=== PATIENT | male | born 1990 | race African-American/Black ===

== ENCOUNTER 2019-02-26 03:25 | Emergency (ER) | payer OTHER ==
[~2019-02-26] VITALS: Ht 182.9 cm; Wt 79.8 kg
--- NOTE | 2019-02-26 03:45 | NUR ---
PT BIBS. C/O "FOUND UNCONSCIOUS OUTSIDE. PROBABLY OD'D ON SPICE" VSS PT RESPONSIVE TO PAIN. WILL CONTINUE TO MONITOR. PT PLACED ON MONITOR.
[2019-02-26 04:08] LABS: BASOPHILS % (AUTO) 0.8 % (0.0-2.0); EOSINOPHILS % (AUTO) 1.5 % (0.0-6.0); HEMATOCRIT 40 % (39-51); HEMOGLOBIN 13.5 g/dL (13.5-17.5); LYMPHOCYTES # (AUTO) 3.1 /CMM (0.8-4.8); LYMPHOCYTES % (AUTO) 55.9 % (20.0-44.0); MEAN CORPUSCULAR HGB CONC 34 g/dl (31.0-36.0); MEAN CORPUSCULAR VOLUME 90 fL (80-96); MONOCYTES # (AUTO) 0.7 /CMM (0.1-1.30); MONOCYTES % (AUTO) 13.3 % (2.0-12.0); NEUTROPHILS # (AUTO) 1.6 /CMM (1.8-8.9); NEUTROPHILS % (AUTO) 28.5 % (43.0-81.0); PLATELET COUNT (AUTO) 223 /CMM (150-450); WHITE BLOOD COUNT (AUTO) 5.5 K/uL (4.3-11.0)
[2019-02-26 04:16] LABS: CALCIUM, SERUM 9.2 mg/dL (8.5-10.1); CARBON DIOXIDE 32 mmol/L (21-32); CHLORIDE 105 mmol/L (98-107); CREATININE 1.2 mg/dL (0.6-1.3); GLUCOSE 104 mg/dL (74-106); POTASSIUM 4.1 mmol/L (3.5-5.1); SODIUM SERUM 141 mmol/L (136-145); UREA NITROGEN, BLOOD 14 mg/dL (7-18)
[2019-02-26 04:22] LABS: ALANINE AMINOTRANSFERASE 19 U/L (12-78); ALBUMIN 3.6 g/dL (3.4-5.0); ALCOHOL, BLOOD < 3 mg/dL (0-0); ALKALINE PHOSPHATASE 77 U/L (46-116); ASPARTATE AMINOTRANSFERASE 20 U/L (15-37); BILIRUBIN,TOTAL 0.2 mg/dL (0.2-1.0); TOTAL PROTEIN, SERUM 7.2 g/dL (6.4-8.2)
[2019-02-26 04:23] LABS: ACETAMINOPHEN 0 ug/ml (10-30); SALICYLATE 1.8 mg/dL (2.8-20.0)
[2019-02-26 04:50] LABS: APPEARANCE,URINE Clear (CLEAR); BILIRUBIN,URINE Negative (NEGATIVE); BLOOD, URINE Negative Ery/uL (NEGATIVE); COLOR,URINE Yellow (YELLOW); KETONES,URINE Negative (NEGATIVE); LEUKOCYTE ESTERASE ,URINE Negative (NEGATIVE); NITRITE, URINE Negative (NEGATIVE); PROTEIN,URINE 30 mg/dl (NEGATIVE); UGLUCOSE Negative (NEGATIVE)
[2019-02-26 06:08] LABS: BACTERIA,URINE Few /HPF (None Seen); RBC,URINE 0-2 /HPF (0-2); SQUAMOUS EPITHELIAL CELL,UR Rare /HPF (None Seen); WBC,URINE 0-2 /HPF (0-3)
--- NOTE | 2019-02-26 07:26 | NUR ---
ASSESSED PT ON BED, DIFFICULT TO AROUSE, NOT IN RESPIRTORY DISTRESS, V/S STABLE, KEPT RESTED AND COMFORTABLE, WILL CONTINUE TO MONITOR.
--- NOTE | 2019-02-26 10:47 | NUR ---
PT STILL ASLEEP ON BED, RESPONDS TO PAIN STIMULI, WILL CONTINUE TO MONITOR.
--- NOTE | 2019-02-26 12:56 | NUR ---
IV removed. Catheter intact and site benign. Pressure and 4x4 applied to site. No bleeding noted. Patient discharged to home in stable condition. Written and verbal after care instructions given. Patient verbalizes understanding of instruction.
[2019-02-26 12:57] VITALS: BP 133/68
== END 2019-02-26 13:00 | disposition home or self-care (01) ==
LOC: ER 03:42
DX: F19.10 Other psychoactive substance abuse, uncomplicated (principal)
CPT/HCPCS: 36415; 80048; 80076; 80305; 80307; 80329; 81001; 82962; 85025; 99283; G0480; 81000-TC

== ENCOUNTER 2021-02-05 07:35 | Emergency (ER) | payer MEDICAID, OTHER ==
[~2021-02-05] VITALS: Ht 182.9 cm; Wt 79.4 kg
--- NOTE | 2021-02-05 07:40 | NUR ---
PT REC'D TO ER VIA EMS PT FOUND OUT ON THE CURB BY MOTHER . CALLED EMS UNRESPONSIVE OD. EASILY AROUSED . PT VOIDED ON HIMSELF CLEANED AND DRIED. MONITORS APPLIED VSSAWAITING EVALUATION BY ER PROVIDER.
--- NOTE | 2021-02-05 14:19 | NUR ---
pt voided changed bed and gown monitors applied mother at bedside
--- NOTE | 2021-02-05 18:47 | NUR ---
pt gordony cont to monitor vss
[2021-02-05] MEDS ORDERED: NALO4SPR NS (20:01)
--- NOTE | 2021-02-05 20:10 | NUR ---
PT OK TO DISCHARGE PER DR PARRA. Patient discharged to home in stable condition. Written and verbal after care instructions given. Patient verbalizes understanding of instruction.Patient is awake and alert to self, day, and place. PT ambulatory with a steady gait
[2021-02-05 20:11] VITALS: BP 115/78
== END 2021-02-05 20:11 | disposition home or self-care (01) ==
LOC: ER 07:43
DX: F11.90 Opioid use, unspecified, uncomplicated (principal)

== ENCOUNTER 2022-10-30 15:42 | Emergency (ER) | payer OTHER ==
[~2022-10-30] VITALS: Ht 182.9 cm; Wt 97.5 kg
[~2022-10-30 15:42] MED LIST: NALO4SPR NS
[2022-10-30 15:51] VITALS: BP 132/88
--- NOTE | 2022-10-30 15:51 | NUR ---
SHANTA BOLTON Escorted by Officer Brianda [id number] for clearance/OTB
--- NOTE | 2022-10-30 16:10 | NUR ---
COVID TEST COLLECTED AND SENT
[2022-10-30] MEDS ORDERED: ALPRAZOLAM 0.25 MG TABLET ONE (16:11)
[2022-10-30] MEDS ORDERED: ALPRAZOLAM 0.25 MG TABLET PO ONE (16:30)
--- NOTE | 2022-10-30 17:04 | NUR ---
Patient discharged to police department secretary. Written and verbal after care instructions given. Patient and officers verbalizes understanding of instruction. covid test result provided.
== END 2022-10-30 17:05 ==
LOC: ER 15:49
DX: Z02.89 Encounter for other administrative examinations (principal); Z20.822 Contact with and (suspected) exposure to COVID-19; F41.9 Anxiety disorder, unspecified
CPT/HCPCS: 99283; 87426; C9803